=== PATIENT | female | born 1950 | race Caucasian/White ===

== ENCOUNTER 2016-10-17 11:23 | Emergency (ER) | payer BC ==
[~2016-10-17] VITALS: Ht 160 cm; Wt 92.5 kg
[2016-10-17 11:23] VITALS: BP_SYST 170
[~2016-10-17 11:23] MED LIST: NORCO PO; TRAMADOL PO
--- NOTE | 2016-10-17 11:23 | NUR ---
Pt placed in bed 6 in ED by triage nurse.
--- NOTE | 2016-10-17 11:23 | NUR ---
Pt here for elevated BP at home >200 per pt. Pt states she took pt's Norvasc medication at home. After taking Norvasc, pt c/o lightheadedness and dizzy with slight SOB due to anxiety. Pt's lung sounds clear, o2 sat is 97 % RA, respirations even and unlabored. Pt is placed on hospital monitor and continuous pulse ox. EKG being done at bedside. Will continue to monitor pt.
--- NOTE | 2016-10-17 11:25 | NUR ---
Dr. Caballero at bedside to asses pt.
[2016-10-17] MEDS ORDERED: cloNIDine HCL 0.1 MG TABLET PO ONE (11:45)
--- NOTE | 2016-10-17 11:45 | NUR ---
X Ray at bedside
[2016-10-17 12:04] LABS: BASOPHILS % (AUTO) 0.7 % (0.0-2.0); EOSINOPHILS # (AUTO) 0.1 K/uL (0.0-0.4); HEMATOCRIT 44.7 % (36-48); HEMOGLOBIN 14.6 g/dL (12.0-16.0); LYMPHOCYTES # (AUTO) 1.7 K/uL (1.0-5.5); LYMPHOCYTES % (AUTO) 25.7 % (20.5-51.5); MEAN CORPUSCULAR HEMOGLOBIN 30 pg (27-31); MEAN CORPUSCULAR HGB CONC 33 % (32-36); MEAN CORPUSCULAR VOLUME 92 fL (79.0-98.0); MONOCYTES # (AUTO) 0.3 K/uL (0.0-1.0); MONOCYTES % (AUTO) 4.8 % (1.7-9.3); NEUTROPHILS # (AUTO) 4.6 K/uL (1.8-7.7); NEUTROPHILS % (AUTO) 67.8 % (40.0-70.0); PLATELET COUNT (AUTO) 305 K/uL (130-430); RED BLOOD CELL COUNT(AUTO) 4.87 MIL/uL (4.2-6.2); RED CELL DISTRIBUTION WIDTH 13.3 % (9.0-15.0); WHITE BLOOD COUNT (AUTO) 6.7 K/uL (4.8-10.8)
[2016-10-17 12:11] LABS: CALCIUM 9.3 mg/dL (8.4-11.0); CREATININE 0.87 mg/dL (0.55-1.30); POTASSIUM 3.7 mmol/L (3.5-5.1)
[2016-10-17 12:16] LABS: ALBUMIN 4.6 g/dL (3.4-4.8); TOTAL BILIRUBIN 0.4 mg/dL (0.0-1.0); TOTAL PROTEIN, SERUM 7.9 g/dL (6.4-8.3)
[2016-10-17 13:30] VITALS: BP_SYST 142
--- NOTE | 2016-10-17 13:30 | NUR ---
Patient given written and verbal discharge instructions and verbalizes understanding. ER MD discussed with patient the results and treatment provided. Patient in stable condition. ID arm band removed. IV catheter removed intact and dressing applied, no active bleeding. Rx of clonidine 0.1mg given. Opportunity for questions provided and answered.
== END 2016-10-17 13:30 | disposition home or self-care (01) ==
LOC: SED 11:53
DX: I10 Essential (primary) hypertension (principal); R42 Dizziness and giddiness; Z88.2 Allergy status to sulfonamides; Z88.5 Allergy status to narcotic agent
CPT/HCPCS: 36415; 71010; 80053; 82550-TC; 83880; 84484; 84703; 85025; 85610-TC; 85730-TC; 93005; 99285